=== PATIENT | male | born 1970 | race Two or more races ===

== ENCOUNTER 2018-01-20 17:43 | Inpatient (IN) | payer OTHER ==
[2018-01-20 17:59] VITALS: BMI 25.4
--- NOTE | 2018-01-20 20:56 | HP ---
CIWA Score - CIWA Score Nausea/Vomitin-Mild Nausea/No Vomiting Muscle Tremors: 2 Anxiety: 2 Agitation: 0-Normal Activity Paroxysmal Sweats: 2 Orientation: 0-Oriented Tacttile Disturbances: 2-Mild Itch/Numbness/Burn (hands b/t and feet) Auditory Disturbances: 1-Very Mild Visual Disturbances: 1-Very Mild Sensitivity (wears sunglasess indoors) Headache: 1-Very Mild CIWA-Ar Total Score: 12 Admission ROS S - HPI Chief Complaint: alcohol withdrawal symptoms, " when I wake up I feel horrible, I'm so anxious and shaky, and I need a drink to feel better. I want to quit drinking Ihave Hep C and I am afraid my liver will get worse." Allergies/Adverse Reactions: Allergies Allergy/AdvReac Type Severity Reaction Status Date / Time No Known Allergies Allergy Verified 01/20/18 19:09 History of Present Illness: 47 yo male with hx of marijuana, nicotine, alcohol and IV heroin dependence is here seeking detox. Patient currently attends [facility] [phone] out patient [facility] currently on 70 mg methadone, last medicated 01/20/18. PMHX: Hep C, gastritis with H. Pylori, Anemia, anxiety and insomnia. Denies suicidal / homicidal ideation or suicide attempts. Reports hx of seizure when use to consume xanax in 2013. Reports hx of blackouts related to drinking in 2014. Last detox at [facility] September 2017. Longest period of sobriety 4 years. Reports no after care plans at this time. Exam Limitations: No Limitations - Ebola screening Have you traveled outside of the country in the last 21 days: No Have you had contact with anyone from an Ebola affected area: No Have you been sick,other than usual withdrawal symptoms: No Do you have a fever: No - Review of Systems Constitutional: Chills, Loss of Appetite, Changes in sleep (reports has three days without sleep), Weakness, Unintentional Wgt. Loss (9 lbs in the past two weeks) EENT: reports: See HPI, Blurred Vision, Other (mild sensitivity to light) Respiratory: reports: No Symptoms reported Cardiac: reports: Lightheadedness GI: reports: Nausea, Poor Appetite, Poor Fluid Intake, Indigestion : reports: No Symptoms Reported Musculoskeletal: reports: Back Pain, Other (reports feels weak the knees buckle) Integumentary: reports: No Symptoms Reported Neuro: reports: Numbness, Tingling (b/t hands and feet) Endocrine: reports: Increased Thirst Hematology: reports: No Symptoms Reported Psychiatric: reports: Orientated x3, Depressed Other Systems: Reviewed and Negative Patient History - Patient Medical History Hx Anemia: No Hx Asthma: No Hx Chronic Obstructive Pulmonary Disease (COPD): No Hx Cancer: No Hx Cardiac Disorders: No Hx Congestive Heart Failure: No Hx Hypertension: No Hx Hypercholesterolemia: No Hx Pacemaker: No HX Cerebrovascular Accident: No Hx Seizures: Yes (in 2013 when using Xanax ) Hx Dementia: No Hx Diabetes: No Hx Gastrointestinal Disorders: No Hx Liver Disease: Yes (hep C) Hx Genitourinary Disorders: No Hx Sexually Transmitted Disorders: No Hx Renal Disease (ESRD): No Hx Thyroid Disease: No Hx Human Immunodeficiency Virus (HIV): No (last May 2017) Hx Hepatitis C: Yes Hx Depression: Yes Hx Suicide Attempt: No Hx Bipolar Disorder: No Hx Schizophrenia: No - Patient Surgical History Past Surgical History: No Hx Neurologic Surgery: No Hx Cataract Extraction: No Hx Cardiac Surgery: No Hx Lung Surgery: No Hx Breast Surgery: No Hx Breast Biopsy: No Hx Abdominal Surgery: No Hx Appendectomy: No Hx Cholecystectomy: No Hx Genitourinary Surgery: No Hx Section: No Hx Orthopedic Surgery: No Anesthesia Reaction: No - PPD History Previous Implant?: Yes Documented Results: Negative w/o proof PPD to be Administered?: Yes - Reproductive History Patient is a Female of Child Bearing Age (11 -55 yrs old): No - Smoking Cessation Smoking history: Current every day smoker Have you smoked in the past 12 months: Yes Aproximately how many cigarettes per day: 6 Hx Chewing Tobacco Use: No Initiated information on smoking cessation: Yes 'Breaking Loose' booklet given: 01/20/18 - Substance & Tx. History Hx Alcohol Use: Yes Hx Substance Use: Yes Substance Use Type: Alcohol, Cocaine, Heroin, Marijuana Hx Substance Use Treatment: Yes ([facility] 2016) - Substances Abused Alcohol Route: Oral Frequency: Daily Amount used: Liquor- 1 pint, beer- 6 (24oz) Age of first use: 21 Date of Last Use: 01/20/18 Heroin Route: Inhalation Frequency: Daily Amount used: 2 bags Age of first use: 24 Date of Last Use: 01/20/18 Cocaine Route: Smoking Frequency: 1-3 times last 30 days Amount used: $40 Age of first use: 14 Date of Last Use: 01/19/18 Marijuana/Hashish Route: Smoking Frequency: 3-6 times per week Amount used: 1- 3 blunts Age of first use: 18 Date of Last Use: 01/20/18 Family Disease History - Family Disease History Family Disease History: Other: Father (alive, HTN ), Mother (alive and well ) Admission Physical Exam [facility] - Vital Signs Vital Signs: Vital Signs - 24 hr 01/20/18 17:57 Temperature 97 F L Pulse Rate 69 Respiratory 18 Rate Blood Pressure 134/73 - Physical General Appearance: Yes: No Apparent Distress, Nourished, Appropriately Dressed , Disheveled, Anxious HEENTM: Yes: EOMI, Hearing grossly Normal, Normal ENT Inspection, Pharynx Normal , Tm's normal, Other (chelithis , dry mucous membranes) Respiratory: Yes: Chest Non-Tender, Lungs Clear, Normal Breath Sounds, No Respiratory Distress, No Accessory Muscle Use Neck: Yes: No masses,lesions,Nodules, Trachea in good position Breast: Yes: Breast Exam Deferred Cardiology: Yes: Regular Rhythm, Regular Rate Abdominal: Yes: Normal Bowel Sounds, Non Tender, Flat, Soft Genitourinary: Yes: Within Normal Limits Back: Yes: Normal Inspection, Muscle Spasm Musculoskeletal: Yes: full range of Motion, Gait Steady, Pelvis Stable, Back pain (+ tenderness) Extremities: Yes: Normal Capillary Refill, Normal Inspection, Normal Range of Motion, Non-Tender Neurological: Yes: relay checker II-XII NML intact, Fully Oriented, Alert, Motor Strength 5/5, Depressed Affect Integumentary: Yes: Normal Color, Warm, Diaphoresis, Track Bermudez (neck (right)) Lymphatic: Yes: Within Normal Limits - 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 : Reference #: [id number], no narcotic prescribe - Diagnostic (1) Alcohol dependence with withdrawal Current Visit: Yes Status: Acute Qualifiers: Complication of substance-induced condition: uncomplicated Qualified Code(s ): F10.230 - Alcohol dependence with withdrawal, uncomplicated (2) Nicotine dependence Current Visit: Yes Status: Acute Qualifiers: Nicotine product type: cigarettes (3) Cocaine dependence Current Visit: Yes Status: Acute Qualifiers: Substance use status: uncomplicated Qualified Code(s): F14.20 - Cocaine dependence, uncomplicated (4) Marijuana dependence Current Visit: Yes Status: Acute (5) Dehydration Current Visit: Yes Status: Acute (6) Insomnia Current Visit: Yes Status: Acute Qualifiers: Insomnia type: unspecified Qualified Code(s): G47.00 - Insomnia, unspecified (7) Back pain Current Visit: Yes Status: Acute Qualifiers: Back pain location: low back pain Back pain laterality: left (8) IV drug user Current Visit: Yes Status: Chronic (9) Methadone maintenance therapy patient Current Visit: Yes Status: Chronic Comment: Currently on methadone 70 mg, pending verification. (10) Numbness and tingling of upper and lower extremities of both sides Current Visit: Yes Status: Acute Cleared for Admission S - Detox or Rehab [facility] Level of Care: Medically Managed Detox Regimen/Protocol: Librium [facility] Breath Alcohol Content Breath Alcohol Content: 0.074 Urine Drug Screen - Results Drug Screen Negative: No Urine Drug Screen Results: THC-Marijuana, ARIADNE-Cocaine, OPI-Opiates, MTD- Methadone
[2018-01-20] MEDS ORDERED: ACETAMINOPHEN 325 MG TABLET (FP) PO PRN (21:04)
[2018-01-20] MEDS ORDERED: MAGNESIUM CITRATE 300 ML BOTTLE PO PRN (21:04)
[2018-01-20] MEDS ORDERED: IBUPROFEN 400 MG TABLET (FP) PO PRN (21:04)
[2018-01-20] MEDS ORDERED: hydrOXYzine PAMOATE 25 MG CAPSULE (FP) PO PRN (21:04)
[2018-01-20] MEDS ORDERED: LOPERAMIDE HCL 2 MG CAPSULE PO PRN (21:04)
[2018-01-20] MEDS ORDERED: NICOTINE POLACRILEX 2 MG GUM BC PRN (21:04)
[2018-01-20] MEDS ORDERED: MENTHOL/PHENOL 1 EACH UD MM PRN (21:04)
[2018-01-20] MEDS ORDERED: P-EPHED 60MG/TRIPROLIDI 2.5MG TABLET PO PRN (21:04)
[2018-01-20] MEDS ORDERED: chlordiazePOXIDE HCL 25 MG CAPSULE PO PRN (21:04)
[2018-01-20] MEDS ORDERED: guaiFENesin/D-METHORPHAN HB 10 ML UNIT-DOSE CUPS PO PRN (21:04)
[2018-01-20] MEDS ORDERED: MAG HYDROX/AL HYDROX/SIMETH 30 ML UNIT-DOSE CUP PO PRN (21:04)
[2018-01-20] MEDS ORDERED: chlordiazePOXIDE HCL 25 MG CAPSULE PO ONE (21:04)
[2018-01-20] MEDS ORDERED: MAGNESIUM HYDROX 2400MG/30ML ORAL SUSPENSION 30 ML CUP PO PRN (21:04)
[2018-01-20] MEDS ORDERED: MELATONIN 5 MG TABLETS PO PRN (22:00)
[2018-01-20] MEDS: CYCLOBENZAPRINE HCL 5 MG TABLET PO SCH (22:44)
[2018-01-20] MEDS: THIAMINE HCL 100 MG TABLET (FP) PO SCH (22:44)
[2018-01-20] MEDS: chlordiazePOXIDE HCL 25 MG CAPSULE PO SCH (22:50)
[2018-01-21 02:01] LABS: URINE APPEARANCE CLEAR; URINE BILIRUBIN NEGATIVE (<2.0 mg/dL); URINE BLOOD NEGATIVE (NEGATIVE); URINE COLOR COLORLESS; URINE GLUCOSE (UA) NEGATIVE (NEGATIVE); URINE KETONE NEGATIVE (NEGATIVE); URINE LEUK ESTERASE NEGATIVE (NEGATIVE); URINE NITRITE NEGATIVE (NEGATIVE); URINE PROTEIN NEGATIVE (NEGATIVE); URINE UROBILINOGEN NEGATIVE mg/dL (0.2-1.0)
[2018-01-21] MEDS: chlordiazePOXIDE HCL 25 MG CAPSULE PO SCH ×4 (05:53→22:32)
[2018-01-21] MEDS ORDERED: METHADONE HCL 10 MG TABLET PO SCH (07:00)
[2018-01-21] MEDS: METHADONE 40 MG, METHADONE 30 MG PO SCH (08:01)
[2018-01-21] MEDS ORDERED: METHADONE HCL 10 MG TABLET ONE (08:01)
[2018-01-21] MEDS ORDERED: METHADONE HCL 40 MG DISPERSABLE TABLET ONE (08:01)
--- NOTE | 2018-01-21 10:53 | EKG ---
Test Reason : Blood Pressure : / mmHG Vent. Rate : 063 BPM Atrial Rate : 063 BPM P-R Int : 154 ms QRS Dur : 092 ms QT Int : 410 ms P-R-T Axes : 078 068 060 degrees QTc Int : 419 ms NORMAL SINUS RHYTHM NONSPECIFIC T WAVE ABNORMALITY ABNORMAL ECG NO PREVIOUS ECGS AVAILABLE Confirmed by ALYSSA BARRERA MD ([id number]) on 01/21/2018 10:52:51 AM Referred By: Confirmed By:ALYSSA BARRERA MD
[2018-01-21] MEDS: NICOTINE 14 MG/24 HOURS TOPICAL PATCH TD SCH (10:55)
[2018-01-21] MEDS: PRENATAL VITAMINS W/ FOLIC ACID TABLET (FP) PO SCH (10:55)
[2018-01-21] MEDS: CYCLOBENZAPRINE HCL 5 MG TABLET PO SCH (10:55)
--- NOTE | 2018-01-21 11:05 | PN ---
S CIWA - CIWA Score Nausea/Vomitin-No Nausea/No Vomiting Muscle Tremors: 3 Anxiety: 4-Mod. Anxious/Guarded Agitation: 3 Paroxysmal Sweats: 2 Orientation: 0-Oriented Tacttile Disturbances: 2-Mild Itch/Numbness/Burn Auditory Disturbances: 0-None Visual Disturbances: 0-None Headache: 0-None Present CIWA-Ar Total Score: 14 BHS Progress Note (SOAP) Subjective: Tremors, Sweating, Anxious, Fatigue. Objective: PATIENT A & O X 3. NO ACUTE DISTRESS. 01/21/18 11:06 Vital Signs Temperature 97.5 F L 01/21/18 09:17 Pulse Rate 53 L 01/21/18 09:17 Respiratory Rate 20 01/21/18 09:17 Blood Pressure 108/66 01/21/18 09:17 O2 Sat by Pulse Oximetry (%) Laboratory Tests 01/20/18 23:54 Urine Color Colorless Urine Appearance Clear Urine pH 6.0 Ur Specific [place] 1.004 Urine Protein Negative Urine Glucose (UA) Negative Urine Ketones Negative Urine Blood Negative Urine Nitrite Negative Urine Bilirubin Negative Urine Urobilinogen Negative Ur Leukocyte Esterase Negative UA RESULTS NOTED. CBC,CMP, AND RPR RESULTS PENDING. 01/21/18 11:07 Assessment: 01/21/18 11:07 WITHDRAWAL SYMPTOMS. Plan: CONTINUE DETOX. INCREASE DAILY PO FLUID INTAKE.
[2018-01-21 15:03] LABS: HEMATOCRIT 40.3 % (35.4-49); HEMOGLOBIN 13.5 GM/dL (11.7-16.9); MCH 31.6 pg (25.7-33.7); MCHC 33.6 g/dl (32.0-35.9); MEAN CELL VOLUME 94.2 fl (80-96); MEAN PLT VOLUME 7.8 fl (7.5-11.1); PLATELET COUNT 228 K/MM3 (134-434); RBC 4.28 M/mm3 (4.00-5.60); RDW 12.8 % (11.9-15.9)
--- NOTE | 2018-01-21 15:12 | CONSULT ---
[facility] Psychiatric Consult - Data Date of interview: 01/21/18 Admission source: [facility] Identifying data: Visited on four occasions for psychiatric interview.Patient has consistently declined to cooperate with screen writer.Refused to leave his bed. " I am tired.I need my sleep.I don't want to talk.Leave me alone." Examination deferred.Nursing staff made aware.
[2018-01-21 15:15] LABS: ALBUMIN 3.2 g/dl (3.4-5.0); ALK PHOS 58 U/L (45-117); ANION GAP 10 (8-16); BILIRUBIN,TOTAL 0.5 mg/dL (0.2-1.0); BLOOD UREA NITROGEN 21 mg/dL (7-18); CALCIUM 8.5 mg/dL (8.5-10.1); CHLORIDE 104 mmol/L (98-107); CO2 29 mmol/L (21-32); CREATININE 0.7 mg/dL (0.7-1.3); GLUCOSE,RANDOM 102 mg/dL (74-106); POTASSIUM 4.4 mmol/L (3.5-5.1); SGOT/AST 21 U/L (15-37); SGPT/ALT 22 U/L (12-78); SODIUM 143 mmol/L (136-145); TOT PROT 6.8 g/dl (6.4-8.2)
[2018-01-21] MEDS: THIAMINE HCL 100 MG TABLET (FP) PO SCH (22:32)
[2018-01-22] MEDS ORDERED: METHADONE HCL 40 MG DISPERSABLE TABLET ONE (04:47)
[2018-01-22] MEDS ORDERED: METHADONE HCL 10 MG TABLET ONE (04:47)
[2018-01-22] MEDS: METHADONE 40 MG, METHADONE 30 MG PO SCH (06:22)
[2018-01-22] MEDS: chlordiazePOXIDE HCL 25 MG CAPSULE PO SCH ×3 (06:22→17:10)
[2018-01-22] MEDS: PRENATAL VITAMINS W/ FOLIC ACID TABLET (FP) PO SCH (10:12)
[2018-01-22] MEDS: CYCLOBENZAPRINE HCL 5 MG TABLET PO SCH (10:13)
[2018-01-22] MEDS: NICOTINE 14 MG/24 HOURS TOPICAL PATCH TD SCH (10:13)
--- NOTE | 2018-01-22 11:27 | PN ---
S CIWA - CIWA Score Nausea/Vomitin-No Nausea/No Vomiting Muscle Tremors: 2 Anxiety: 4-Mod. Anxious/Guarded Agitation: 0-Normal Activity Paroxysmal Sweats: 3 Orientation: 0-Oriented Tacttile Disturbances: 3-Moderate Itch/Numb/Burn Auditory Disturbances: 0-None Visual Disturbances: 3-Moderate Sensitivity Headache: 0-None Present CIWA-Ar Total Score: 15 BHS Progress Note (SOAP) Subjective: Stomach Cramping, Body Aches, Anxious, Sweating. Objective: PATIENT A & O X 3. NO ACUTE DISTRESS. 01/22/18 11:26 Vital Signs Temperature 97.0 F L 01/22/18 09:10 Pulse Rate 55 L 01/22/18 09:10 Respiratory Rate 18 01/22/18 09:10 Blood Pressure 149/79 01/22/18 09:10 O2 Sat by Pulse Oximetry (%) Laboratory Tests 01/20/18 01/21/18 01/21/18 23:54 08:20 08:20 WBC 4.0 RBC 4.28 Hgb 13.5 Hct 40.3 MCV 94.2 MCH 31.6 MCHC 33.6 RDW 12.8 Plt Count 228 MPV 7.8 Sodium 143 Potassium 4.4 Chloride 104 Carbon Dioxide 29 Anion Gap 10 BUN 21 H Creatinine 0.7 Creat Clearance w eGFR > 60 Random Glucose 102 Calcium 8.5 Total Bilirubin 0.5 AST 21 ALT 22 Alkaline Phosphatase 58 Total Protein 6.8 Albumin 3.2 L Urine Color Colorless Urine Appearance Clear Urine pH 6.0 Ur Specific [place] 1.004 Urine Protein Negative Urine Glucose (UA) Negative Urine Ketones Negative Urine Blood Negative Urine Nitrite Negative Urine Bilirubin Negative Urine Urobilinogen Negative Ur Leukocyte Esterase Negative RPR Titer 01/21/18 08:20 WBC RBC Hgb Hct MCV MCH MCHC RDW Plt Count MPV Sodium Potassium Chloride Carbon Dioxide Anion Gap BUN Creatinine Creat Clearance w eGFR Random Glucose Calcium Total Bilirubin AST ALT Alkaline Phosphatase Total Protein Albumin Urine Color Urine Appearance Urine pH Ur Specific [place] Urine Protein Urine Glucose (UA) Urine Ketones Urine Blood Urine Nitrite Urine Bilirubin Urine Urobilinogen Ur Leukocyte Esterase RPR Titer Nonreactive LABS NOTED. Assessment: 01/22/18 11:26 WITHDRAWAL SYMPTOMS. Plan: CONTINUE DETOX. INCREASE DAILY PO FLUID INTAKE. ENCOURAGE AMBULATION.
[2018-01-22] MEDS: chlordiazePOXIDE 5 MG CAPSULE PO SCH (22:45)
[2018-01-22] MEDS: THIAMINE HCL 100 MG TABLET (FP) PO SCH (22:45)
[2018-01-23] MEDS ORDERED: METHADONE HCL 10 MG TABLET ONE (05:00)
[2018-01-23] MEDS ORDERED: METHADONE HCL 40 MG DISPERSABLE TABLET ONE (05:01)
[2018-01-23] MEDS: METHADONE 40 MG, METHADONE 30 MG PO SCH (06:36)
[2018-01-23] MEDS: chlordiazePOXIDE 5 MG CAPSULE PO SCH ×3 (07:24→18:15)
[2018-01-23] MEDS: CYCLOBENZAPRINE HCL 5 MG TABLET PO SCH (10:37)
[2018-01-23] MEDS: NICOTINE 14 MG/24 HOURS TOPICAL PATCH TD SCH (10:37)
[2018-01-23] MEDS: PRENATAL VITAMINS W/ FOLIC ACID TABLET (FP) PO SCH (10:37)
--- NOTE | 2018-01-23 11:40 | PN ---
BHS Progress Note (SOAP) Subjective: Stomach Cramping, Anxious, Body Aches. Objective: PATIENT A & O X 3, OBSERVED AMBULATING ON UNIT. NO ACUTE DISTRESS. 01/23/18 11:39 Vital Signs Temperature 96.9 F L 01/23/18 09:07 Pulse Rate 84 01/23/18 09:07 Respiratory Rate 18 01/23/18 09:07 Blood Pressure 123/74 01/23/18 09:07 O2 Sat by Pulse Oximetry (%) Laboratory Tests 01/20/18 01/21/18 01/21/18 23:54 08:20 08:20 WBC 4.0 RBC 4.28 Hgb 13.5 Hct 40.3 MCV 94.2 MCH 31.6 MCHC 33.6 RDW 12.8 Plt Count 228 MPV 7.8 Sodium 143 Potassium 4.4 Chloride 104 Carbon Dioxide 29 Anion Gap 10 BUN 21 H Creatinine 0.7 Creat Clearance w eGFR > 60 Random Glucose 102 Calcium 8.5 Total Bilirubin 0.5 AST 21 ALT 22 Alkaline Phosphatase 58 Total Protein 6.8 Albumin 3.2 L Urine Color Colorless Urine Appearance Clear Urine pH 6.0 Ur Specific [place] 1.004 Urine Protein Negative Urine Glucose (UA) Negative Urine Ketones Negative Urine Blood Negative Urine Nitrite Negative Urine Bilirubin Negative Urine Urobilinogen Negative Ur Leukocyte Esterase Negative RPR Titer 01/21/18 08:20 WBC RBC Hgb Hct MCV MCH MCHC RDW Plt Count MPV Sodium Potassium Chloride Carbon Dioxide Anion Gap BUN Creatinine Creat Clearance w eGFR Random Glucose Calcium Total Bilirubin AST ALT Alkaline Phosphatase Total Protein Albumin Urine Color Urine Appearance Urine pH Ur Specific [place] Urine Protein Urine Glucose (UA) Urine Ketones Urine Blood Urine Nitrite Urine Bilirubin Urine Urobilinogen Ur Leukocyte Esterase RPR Titer Nonreactive LABS NOTED. Assessment: 01/23/18 11:39 WITHDRAWAL SYMPTOMS. Plan: CONTINUE DETOX. INCREASE DAILY PO FLUID INTAKE.
[2018-01-23] MEDS: THIAMINE HCL 100 MG TABLET (FP) PO SCH (22:07)
[2018-01-23] MEDS: chlordiazePOXIDE HCL 10 MG CAPSULE PO SCH (22:07)
[2018-01-24] MEDS ORDERED: METHADONE HCL 10 MG TABLET ONE (04:42)
[2018-01-24] MEDS ORDERED: METHADONE HCL 40 MG DISPERSABLE TABLET ONE (04:42)
[2018-01-24] MEDS: chlordiazePOXIDE HCL 10 MG CAPSULE PO SCH (05:52)
[2018-01-24] MEDS: METHADONE 40 MG, METHADONE 30 MG PO SCH (05:53)
[2018-01-24 05:58] VITALS: BP 129/62; PULSE 51; TEMP 96.9
--- NOTE | 2018-01-24 17:57 | PN ---
BHS Progress Note (SOAP) Subjective: Patient denies any current Detox symptoms and reports that he is feeling well overall. Objective: PATIENT A & O X 3, OBSERVED AMBULATING ON UNIT. NO ACUTE DISTRESS. 01/24/18 17:56 Vital Signs Temperature 96.9 F L 01/24/18 05:58 Pulse Rate 51 L 01/24/18 05:58 Respiratory Rate 18 01/24/18 05:58 Blood Pressure 129/62 01/24/18 05:58 O2 Sat by Pulse Oximetry (%) Laboratory Tests 01/20/18 01/21/18 01/21/18 23:54 08:20 08:20 WBC 4.0 RBC 4.28 Hgb 13.5 Hct 40.3 MCV 94.2 MCH 31.6 MCHC 33.6 RDW 12.8 Plt Count 228 MPV 7.8 Sodium 143 Potassium 4.4 Chloride 104 Carbon Dioxide 29 Anion Gap 10 BUN 21 H Creatinine 0.7 Creat Clearance w eGFR > 60 Random Glucose 102 Calcium 8.5 Total Bilirubin 0.5 AST 21 ALT 22 Alkaline Phosphatase 58 Total Protein 6.8 Albumin 3.2 L Urine Color Colorless Urine Appearance Clear Urine pH 6.0 Ur Specific [place] 1.004 Urine Protein Negative Urine Glucose (UA) Negative Urine Ketones Negative Urine Blood Negative Urine Nitrite Negative Urine Bilirubin Negative Urine Urobilinogen Negative Ur Leukocyte Esterase Negative RPR Titer 01/21/18 08:20 WBC RBC Hgb Hct MCV MCH MCHC RDW Plt Count MPV Sodium Potassium Chloride Carbon Dioxide Anion Gap BUN Creatinine Creat Clearance w eGFR Random Glucose Calcium Total Bilirubin AST ALT Alkaline Phosphatase Total Protein Albumin Urine Color Urine Appearance Urine pH Ur Specific [place] Urine Protein Urine Glucose (UA) Urine Ketones Urine Blood Urine Nitrite Urine Bilirubin Urine Urobilinogen Ur Leukocyte Esterase RPR Titer Nonreactive LABS NOTED. Assessment: 01/24/18 17:57 COMPLETION OF DETOX REGIMEN. Plan: PATIENT SCHEDULED FOR DISCHARGE FROM DETOX TODAY.
--- NOTE | 2018-01-24 18:01 | DS ---
[facility] Detox Discharge Summary Admission Date: 01/20/18 Discharge Date: 01/24/18 - History Present History: Alcohol Dependence, Cannabis Dependence, Cocaine Dependence, Opioid Dependence, MMTP Additional Comments: PATIENT GOING HOME. PATIENT ADVISED TO CONSIDER LOCAL 12-STEP / NA / AA OUTPATIENT SUPPORT GROUPS FOR AFTERCARE. PATIENT WAS DISCHARGED FROM DETOX UNIT IN STABLE MEDICAL CONDITION. Pertinent Past History: Nicotine Dependence, History of seizures, Hep C, Dehydration, MMTP, Back Pain, Numbness and Tingling of Upper and Lower Extremities. - Physical Exam Results Vital Signs: Vital Signs Temperature 96.9 F L 01/24/18 05:58 Pulse Rate 51 L 01/24/18 05:58 Respiratory Rate 18 01/24/18 05:58 Blood Pressure 129/62 01/24/18 05:58 O2 Sat by Pulse Oximetry (%) Pertinent Admission Physical Exam Findings: WITHDRAWAL SYMPTOMS. Laboratory Tests 01/20/18 01/21/18 01/21/18 23:54 08:20 08:20 WBC 4.0 RBC 4.28 Hgb 13.5 Hct 40.3 MCV 94.2 MCH 31.6 MCHC 33.6 RDW 12.8 Plt Count 228 MPV 7.8 Sodium 143 Potassium 4.4 Chloride 104 Carbon Dioxide 29 Anion Gap 10 BUN 21 H Creatinine 0.7 Creat Clearance w eGFR > 60 Random Glucose 102 Calcium 8.5 Total Bilirubin 0.5 AST 21 ALT 22 Alkaline Phosphatase 58 Total Protein 6.8 Albumin 3.2 L Urine Color Colorless Urine Appearance Clear Urine pH 6.0 Ur Specific [place] 1.004 Urine Protein Negative Urine Glucose (UA) Negative Urine Ketones Negative Urine Blood Negative Urine Nitrite Negative Urine Bilirubin Negative Urine Urobilinogen Negative Ur Leukocyte Esterase Negative RPR Titer 01/21/18 08:20 WBC RBC Hgb Hct MCV MCH MCHC RDW Plt Count MPV Sodium Potassium Chloride Carbon Dioxide Anion Gap BUN Creatinine Creat Clearance w eGFR Random Glucose Calcium Total Bilirubin AST ALT Alkaline Phosphatase Total Protein Albumin Urine Color Urine Appearance Urine pH Ur Specific [place] Urine Protein Urine Glucose (UA) Urine Ketones Urine Blood Urine Nitrite Urine Bilirubin Urine Urobilinogen Ur Leukocyte Esterase RPR Titer Nonreactive LABS NOTED. - Treatment Hospital Course: Detox Protocol Followed, Detoxed Safely, Responded well, Discharged Condition Good Patient has Accepted a Rehab Referral to: PT ADVISED TO CONSIDER LOCAL 12-STEP/ NA/AA OUTPATIENT SUPPORT GROUPS. - Medication Discharge Medications: Ambulatory Orders NK [No Known Home Medication] 01/20/18 - Diagnosis (1) Alcohol dependence with withdrawal Status: Acute Qualifiers: Complication of substance-induced condition: uncomplicated Qualified Code(s ): F10.230 - Alcohol dependence with withdrawal, uncomplicated (2) Cocaine dependence Status: Acute Qualifiers: Substance use status: uncomplicated Qualified Code(s): F14.20 - Cocaine dependence, uncomplicated (3) Marijuana dependence Status: Acute (4) Nicotine dependence Status: Acute Qualifiers: Nicotine product type: cigarettes Substance use status: uncomplicated Qualified Code(s): F17.210 - Nicotine dependence, cigarettes, uncomplicated (5) Numbness and tingling of upper and lower extremities of both sides Status: Acute (6) IV drug user Status: Chronic (7) Methadone maintenance therapy patient Status: Chronic (8) Back pain Status: Acute Qualifiers: Back pain location: low back pain Chronicity: chronic Back pain laterality: left Sciatica presence: unspecified whether sciatica present Qualified Code(s): M54.5 - Low back pain; G89.29 - Other chronic pain; G89.29 - Other chronic pain (9) Dehydration Status: Acute (10) Insomnia Status: Acute Qualifiers: Insomnia type: unspecified Qualified Code(s): G47.00 - Insomnia, unspecified - AMA Did Patient Leave Against Medical Advice: No
== END 2018-01-24 07:20 | disposition home or self-care (01) | DRG 773 ==
LOC: YASAS 17:43 → Y3N 20:42
PROVIDERS: ADMIT Internal Medicine; ATTEND Internal Medicine
PROC: HZ2ZZZZ Detoxification Services for Substance Abuse Treatment (ICD-10-PCS; principal; 2018-01-20)
DX: F11.23 Opioid dependence with withdrawal (principal); F10.230 Alcohol dependence with withdrawal, uncomplicated; F14.20 Cocaine dependence, uncomplicated; F12.20 Cannabis dependence, uncomplicated; F17.210 Nicotine dependence, cigarettes, uncomplicated; B18.2 Chronic viral hepatitis C; G47.00 Insomnia, unspecified; E86.0 Dehydration; M54.5 Low back pain; G89.29 Other chronic pain; Z86.69 Personal history of other diseases of the nervous system and sense organs
CPT/HCPCS: 36415; 80053; 81003; 85027; 86593; 93005; 93010

== ENCOUNTER 2020-12-27 16:14 | Inpatient (IN) | payer OTHER ==
[2020-12-27 17:37] VITALS: BMI 26.8
[2020-12-27] MEDS ORDERED: MAGNESIUM CITRATE 300 ML BOTTLE PO PRN (18:52)
[2020-12-27] MEDS ORDERED: NICOTINE POLACRILEX 2 MG GUM BUC PRN (18:52)
[2020-12-27] MEDS ORDERED: MAG HYDROX/AL HYDROX/SIMETH 30 ML UNIT-DOSE CUP PO PRN (18:52)
[2020-12-27] MEDS ORDERED: IBUPROFEN 400 MG TABLET (FP) PO PRN (18:52)
[2020-12-27] MEDS ORDERED: ONDANSETRON *ODT* 4 MG TABLET SL PRN (18:52)
[2020-12-27] MEDS ORDERED: MAGNESIUM HYDROX 2400MG/30ML ORAL SUSPENSION 30 ML CUP PO PRN (18:52)
[2020-12-27] MEDS ORDERED: ACETAMINOPHEN 325 MG TABLET (FP) PO PRN ×2 (18:52)
[2020-12-27] MEDS ORDERED: MENTHOL/PHENOL 1 EACH UD MM PRN (18:52)
[2020-12-27] MEDS ORDERED: METHOCARBAMOL 500 MG TABLET PO PRN (18:52)
[2020-12-27] MEDS ORDERED: BISMUTH SUBSALICYLATE 524 MG/30 ML UD PO PRN (18:52)
[2020-12-27] MEDS ORDERED: chlordiazePOXIDE HCL 25 MG CAPSULE PO PRN (21:52)
[2020-12-27] MEDS: chlordiazePOXIDE HCL 25 MG CAPSULE PO SCH (22:48)
[2020-12-27] MEDS: MELATONIN 5 MG TABLETS PO SCH (22:49)
[2020-12-27] MEDS: THIAMINE HCL 100 MG TABLET (FP) PO SCH (22:50)
[2020-12-28] MEDS: chlordiazePOXIDE HCL 25 MG CAPSULE PO SCH ×4 (06:02→23:45)
[2020-12-28] MEDS ORDERED: METHADONE HCL 10 MG TABLET PO ONE (13:18)
[2020-12-28] MEDS ORDERED: METHADONE HCL 10 MG TABLET ONE (13:37)
[2020-12-28] MEDS ORDERED: METHADONE HCL 40 MG DISPERSABLE TABLET ONE (13:37)
[2020-12-28] MEDS ORDERED: METHADONE 40 MG, METHADONE 10 MG PO ONE (13:45)
[2020-12-28 13:49] LABS: CALCIUM 8.5 mg/dL (8.5-10.1)
[2020-12-28 13:50] LABS: ALBUMIN 3.3 g/dl (3.4-5.0); BLOOD UREA NITROGEN 16.8 mg/dL (7-18)
[2020-12-28 13:53] LABS: CREATININE 0.8 mg/dL (0.55-1.3)
[2020-12-28 13:54] LABS: BILIRUBIN,TOTAL 0.7 mg/dL (0.2-1)
[2020-12-28 13:56] LABS: HEMATOCRIT 36.6 % (35.4-49); HEMOGLOBIN 12.5 GM/dL (11.7-16.9); MCH 31.9 pg (25.7-33.7); MCHC 34.2 g/dl (32.0-35.9); MEAN CELL VOLUME 93.3 fl (80-96); MEAN PLT VOLUME 7.8 fl (7.5-11.1); PLATELET COUNT 158 K/MM3 (134-434); RBC 3.92 M/mm3 (4.00-5.60); RDW 13.1 % (11.9-15.9); WHITE BLOOD COUNT 3.3 K/mm3 (4.0-10.0)
[2020-12-28] MEDS: PRENATAL VITAMINS W/ FOLIC ACID TABLET (FP) PO SCH (15:22)
[2020-12-28 16:51] LABS: HIV INTERPRETATION NEGATIVE (NEGATIVE)
[2020-12-28] MEDS: MELATONIN 5 MG TABLETS PO SCH (23:16)
[2020-12-28] MEDS: THIAMINE HCL 100 MG TABLET (FP) PO SCH (23:16)
[2020-12-29] MEDS ORDERED: METHADONE HCL 10 MG TABLET ONE (04:37)
[2020-12-29] MEDS ORDERED: METHADONE HCL 40 MG DISPERSABLE TABLET ONE (04:37)
[2020-12-29] MEDS ORDERED: METHADONE HCL 40 MG DISPERSABLE TABLET PO SCH (06:00)
[2020-12-29] MEDS: METHADONE 40 MG, METHADONE 10 MG PO SCH (07:37)
[2020-12-29] MEDS: chlordiazePOXIDE HCL 25 MG CAPSULE PO SCH ×4 (07:38→23:16)
[2020-12-29] MEDS: PRENATAL VITAMINS W/ FOLIC ACID TABLET (FP) PO SCH (10:50)
[2020-12-29] MEDS: MELATONIN 5 MG TABLETS PO SCH (23:15)
[2020-12-29] MEDS: THIAMINE HCL 100 MG TABLET (FP) PO SCH (23:16)
[2020-12-30] MEDS ORDERED: chlordiazePOXIDE HCL 10 MG CAPSULE PO PRN
[2020-12-30] MEDS ORDERED: METHADONE HCL 10 MG TABLET ONE (04:10)
[2020-12-30] MEDS ORDERED: METHADONE HCL 40 MG DISPERSABLE TABLET ONE (04:10)
[2020-12-30] MEDS: METHADONE 40 MG, METHADONE 10 MG PO SCH (06:14)
[2020-12-30] MEDS: chlordiazePOXIDE HCL 10 MG CAPSULE PO SCH ×4 (06:14→23:03)
[2020-12-30] MEDS: PRENATAL VITAMINS W/ FOLIC ACID TABLET (FP) PO SCH (10:57)
[2020-12-30] MEDS: MELATONIN 5 MG TABLETS PO SCH (23:02)
[2020-12-30] MEDS: THIAMINE HCL 100 MG TABLET (FP) PO SCH (23:02)
[2020-12-31] MEDS ORDERED: METHADONE HCL 10 MG TABLET ONE (04:19)
[2020-12-31] MEDS ORDERED: METHADONE HCL 40 MG DISPERSABLE TABLET ONE (04:19)
[2020-12-31] MEDS: METHADONE 40 MG, METHADONE 10 MG PO SCH (06:15)
[2020-12-31] MEDS: chlordiazePOXIDE HCL 10 MG CAPSULE PO SCH ×2 (06:16→23:24)
[2020-12-31] MEDS: PRENATAL VITAMINS W/ FOLIC ACID TABLET (FP) PO SCH (11:41)
[2020-12-31] MEDS: MELATONIN 5 MG TABLETS PO SCH (23:21)
[2020-12-31] MEDS: THIAMINE HCL 100 MG TABLET (FP) PO SCH (23:21)
[2021-01-01] MEDS ORDERED: METHADONE HCL 10 MG TABLET ONE (04:49)
[2021-01-01] MEDS ORDERED: METHADONE HCL 40 MG DISPERSABLE TABLET ONE (04:49)
[2021-01-01] MEDS ORDERED: chlordiazePOXIDE HCL 10 MG CAPSULE PO ONE (05:00)
[2021-01-01] MEDS: METHADONE 40 MG, METHADONE 10 MG PO SCH (07:02)
[2021-01-01] MEDS: PRENATAL VITAMINS W/ FOLIC ACID TABLET (FP) PO SCH (10:54)
[2021-01-01] MEDS: THIAMINE HCL 100 MG TABLET (FP) PO SCH (23:10)
[2021-01-01] MEDS: FAMOTIDINE 20 MG TABLET PO SCH (23:11)
[2021-01-01] MEDS: MELATONIN 5 MG TABLETS PO SCH (23:11)
[2021-01-02] MEDS ORDERED: METHADONE HCL 10 MG TABLET ONE (04:09)
[2021-01-02] MEDS ORDERED: METHADONE HCL 40 MG DISPERSABLE TABLET ONE (04:09)
[2021-01-02] MEDS: METHADONE 40 MG, METHADONE 10 MG PO SCH (06:45)
[2021-01-02] MEDS: PRENATAL VITAMINS W/ FOLIC ACID TABLET (FP) PO SCH (09:25)
[2021-01-02] MEDS: FAMOTIDINE 20 MG TABLET PO SCH (09:25)
[2021-01-02 09:29] VITALS: BP 123/78; PULSE 82; TEMP 96.8
== END 2021-01-02 10:45 | disposition home or self-care (01) | DRG 773 ==
LOC: YASAS 16:14 → Y3N 19:33
PROVIDERS: ADMIT Allergy & Immunology; ATTEND Allergy & Immunology
PROC: HZ2ZZZZ Detoxification Services for Substance Abuse Treatment (ICD-10-PCS; principal; 2020-12-27)
DX: F10.230 Alcohol dependence with withdrawal, uncomplicated (principal); F11.20 Opioid dependence, uncomplicated; F10.220 Alcohol dependence with intoxication, uncomplicated; F14.20 Cocaine dependence, uncomplicated; F12.20 Cannabis dependence, uncomplicated; F17.210 Nicotine dependence, cigarettes, uncomplicated; U07.1 COVID-19; G47.00 Insomnia, unspecified; M54.5 Low back pain; G89.29 Other chronic pain; R26.89 Other abnormalities of gait and mobility; R20.0 Anesthesia of skin
CPT/HCPCS: 36415; 80053; 82962; 85027; 86780; 87389; C9803; U0003